=== PATIENT | female | born 1960 | race Two or more races ===

== ENCOUNTER 2022-05-25 23:04 | Emergency (ER) | payer OTHER ==
[2022-05-25 23:14] VITALS: BP 127/81; PULSE 94; RESP 18; TEMP 98.8; BMI 40.1
[2022-05-26] MEDS ORDERED: LIDOCAINE 5% TOPICAL PATCH TP ONE (02:54)
[2022-05-26] MEDS ORDERED: ACETAMINOPHEN 500 MG TABLET (FP) PO ONE (02:55)
[2022-05-26] MEDS ORDERED: ACETAMINOPHEN 325 MG TABLET (FP) ONE (03:04)
[2022-05-26] MEDS ORDERED: LIDOCAINE 5% TOPICAL PATCH ONE (03:04)
[2022-05-26] MEDS ORDERED: LIDOCAINE PATCH REMOVAL MC SCH (22:00)
== END 2022-05-26 04:18 | disposition home or self-care (01) ==
LOC: JER 23:04
DX: M54.50 Low back pain, unspecified (principal); G89.29 Other chronic pain; M25.561 Pain in right knee; M25.562 Pain in left knee
CPT/HCPCS: 99282-25